=== PATIENT | male | born 1970 | race African-American/Black ===

== ENCOUNTER 2018-09-02 23:54 | Emergency (ER) | payer MEDICAID ==
[~2018-09-02] VITALS: Ht 180.3 cm; Wt 77.1 kg
--- NOTE | 2018-09-03 00:09 | Emergency Room Report ---
History of Present Illness General Chief Complaint: General Complaint Source: Patient, EMS Present Illness HPI Is a 48-year-old male with a history diabetes. He presents with chief complaint of feeling weak and high blood sugar. He said that he ran out of his metformin for 2 days. He is visiting a friend here and then was at a [employer] drink store. He called 911 because he felt weak and nauseous. No vomiting. Denies any alcohol drugs. No fever or chills. Generalized body pain. EMS said the Accu-Chek read high sugar. Allergies: Coded Allergies: No Known Allergies (Unverified , 09/02/18) Patient History Past Medical History: see triage record, old chart reviewed, DM Past Surgical History: other Pertinent Family History: none Social History: Denies: smoking Immunizations: other Reviewed Nursing Documentation: PMH: Agreed; PSxH: Agreed Nursing Documentation-PMH Past Medical History Deferred: Pt Cognitively Impaired Hx Diabetes: Yes History Of Psychiatric Problem: Yes Review of Systems Constitutional: Reports: weakness Eye: Denies: eye pain, blurred vision ENT: Denies: ear pain, nose congestion, throat swelling Respiratory: Denies: cough, shortness of breath Cardiovascular: Denies: chest pain, palpitations Gastrointestinal: Denies: abdominal pain, diarrhea, nausea, vomiting Musculoskeletal: Denies: back pain, joint pain Skin: Denies: rash Neurological: Denies: headache, numbness Endocrine: Denies: increased thirst, increased urine Hematologic/Lymphatic: Denies: easy bruising All Other Systems: negative except mentioned in HPI Physical Exam Vital Signs Date Time Temp Pulse Resp B/P (MAP) Pulse Ox O2 Delivery O2 Flow Rate FiO2 09/02/18 23:55 98.1 104 18 98 Room Air vitals unremarkable Sp02 EP Interpretation: reviewed, normal General Appearance: well appearing, no apparent distress, alert, other - Sleepy Head: normocephalic, atraumatic Eyes: bilateral eye PERRL, bilateral eye EOMI ENT: hearing grossly normal, normal pharynx Neck: full range of motion, supple, no meningismus Respiratory: chest non-tender, lungs clear, normal breath sounds Cardiovascular #1: regular rate, rhythm, no murmur Gastrointestinal: normal bowel sounds, non tender, no mass, no organomegaly, no bruit, non-distended Musculoskeletal: back normal, gait/station normal, normal range of motion Psychiatric: mood/affect normal Skin: warm/dry Medical Decision Making Diagnostic Impression: Primary Impression: Hyperglycemia due to type 2 diabetes mellitus Qualified Codes: E11.65 - Type 2 diabetes mellitus with hyperglycemia Additional Impression: PCP abuse ER Course Patient presents with weakness and hyperglycemia. He slept for several hours. Is probably coming down from his PCP abuse. He is hyperglycemic but no evidence of DKA. Patient hasn't been taking his metformin for the last few days. We'll refill his prescription. No criteria for 5150. He is not suicidal or homicidal. Last Vital Signs Date Time Temp Pulse Resp B/P (MAP) Pulse Ox O2 Delivery O2 Flow Rate FiO2 09/02/18 23:55 98.1 104 18 98 Room Air Status: improved Disposition: HOME, SELF-CARE Condition: Stable Scripts Metformin Hcl (GLUCOPHAGE) 1,000 Mg Tablet 1000 MG ORAL BID, #60 TAB Prov: Lane Mcmillan MD 09/03/18 Referrals: [facility],REFERRING (PCP) Additional Instructions: Taking your diabetes medication. Stop using drugs. Follow-up with your doctor in 7 days. Follow-up with rehabilitation. Return if worse. Lane Mcmillan MD September 03, 2018 00:09
[2018-09-03 00:20] VITALS: BP 133/76
[2018-09-03 01:19] LABS: BASOPHILS % (AUTO) 1.7 % (0.0-2.0); HEMATOCRIT 30.2 % (42.0-52.0); HEMOGLOBIN 9.8 G/DL (14.2-18.0); LYMPHOCYTES % (AUTO) 33.1 % (20.0-45.0); MEAN CORPUSCULAR VOLUME 82 FL (80-99); MONOCYTES % (AUTO) 8.8 % (1.0-10.0); NEUTROPHILS % (AUTO) 50.3 % (45.0-75.0); PLATELET COUNT 192 K/UL (150-450); RED CELL DISTRIBUTION WIDTH 15.2 % (11.6-14.8); WHITE BLOOD COUNT 3.7 K/UL (4.8-10.8)
[2018-09-03 01:28] LABS: APPEARANCE,URINE CLEAR; BILIRUBIN, URINE NEGATIVE (NEGATIVE); COLOR,URINE PALE YELLOW; GLUCOSE, URINE (UA) 4+ (NEGATIVE); KETONES,URINE 1+ (NEGATIVE); LEUKOCYTE ESTERASE ,URINE NEGATIVE (NEGATIVE); NITRITE,URINE NEGATIVE (NEGATIVE); PH,URINE 5 (4.5-8.0); PROTEIN,URINE NEGATIVE (NEGATIVE); UROBILINOGEN,URINE NORMAL MG/DL (0.0-1.0)
[2018-09-03 01:31] LABS: ANION GAP 12 mmol/L (5-15); BLOOD UREA NITROGEN 11 mg/dL (7-18); CALCIUM 8.5 MG/DL (8.5-10.1); CARBON DIOXIDE 24 MMOL/L (21-32); CHLORIDE 95 MMOL/L (98-107); CREATININE 1.1 MG/DL (0.55-1.30); POTASSIUM 4.4 MMOL/L (3.5-5.1); SODIUM 131 MMOL/L (136-145)
[2018-09-03 01:45] VITALS: BP 131/75
[2018-09-03] MEDS ORDERED: Insulin Human Regular 100units/ml 3ml IV ONE (02:15)
[2018-09-03 03:40] VITALS: BP 139/69
[2018-09-03] MEDS ORDERED: GLUCOPHAGE1000 MG ORAL (05:43)
[2018-09-03 06:08] VITALS: BP 145/80
== END 2018-09-03 06:19 | disposition home or self-care (01) ==
LOC: EDBD 23:54 → EMR 23:59
DX: E11.65 Type 2 diabetes mellitus with hyperglycemia (principal); F16.10 Hallucinogen abuse, uncomplicated
CPT/HCPCS: 36415; 80048; 80307; 80329; 81001; 82962; 85025; 96361; 96374; 99284; J1815